=== PATIENT | female | born 1935 | race Caucasian/White ===

== ENCOUNTER 2020-11-25 14:05 | Emergency (ER) | payer MEDICARE, BC ==
--- NOTE | 2020-11-25 17:26 | EDM.PDOC ---
ED HPI GENERAL MEDICAL PROBLEM - General Chief Complaint: General Stated Complaint: FATIGUE Time Seen by Provider: 11/25/20 16:45 Source of Information: Reports: Patient, Family History Limitations: Reports: No Limitations - History of Present Illness INITIAL COMMENTS - FREE TEXT/NARRATIVE: 84-year-old female was brought in by her daughter because earlier today she acted confused, fatigued, seemed to have difficulty stringing a few words together and they were concerned she may be having a stroke. She has had some bleeding, I believe vaginal bleeding, and saw her primary provider yesterday and a [employer] consult has been set up. She otherwise feels okay, she has been waiting in the emergency room for a couple of hours due to it being very busy, and she is now back to baseline. She is speaking in full sentences and has no complaints. She has been on the cardiac cath technician and has been stable with sinus rhythm. According to her daughter she is also been having occasional chills over the past several days. Onset: Unknown/Unsure Duration: Other (Symptoms seem to last for several hours but have resolved) Associated Symptoms: Reports: Confusion, Malaise, Weakness. Denies: Cough, Diaphoresis, Fever/Chills, Headaches, Nausea/Vomiting, Shortness of Breath - Related Data Allergies Allergy/AdvReac Type Severity Reaction Status Date / Time ciprofloxacin [From Cipro] Allergy Other Verified 11/25/20 15:42 Sulfa (Sulfonamide Allergy Other Verified 11/25/20 15:42 Antibiotics) Home Meds: Home Meds Albuterol [Ventolin HFA] 1 - 2 puff IH Q4H PRN 05/10/19 [History] Ascorbic Acid 500 mg PO DAILY 05/10/19 [History] Aspirin [Ecotrin EC] 325 mg PO DAILY 05/10/19 [History] Cholecalciferol (Vitamin D3) [Vitajoy Daily D] 1,000 unit PO DAILY 05/10/19 [History] Desloratadine 5 mg PO DAILY 05/10/19 [History] Diltiazem [Cardizem] 90 mg PO DAILY 05/10/19 [History] Fluticasone Propionate [Flonase] 2 spray BRIGITTE DAILY 05/10/19 [History] Inositol Niacinate [Inositol Hexanicotinate] 500 gm PO DAILY 05/10/19 [History] Multivitamin [Daily Lisa] 1 each PO DAILY 05/10/19 [History] Omeprazole 20 mg PO DAILY 05/10/19 [History] Oxyquinoline/Emollient Base [[place] Nail Conditioner] 1 applic VAG ASDIRECTED 05/10/19 [History] Pravastatin Sodium 20 mg PO DAILY 05/10/19 [History] Vitamin E 400 unit PO DAILY 05/10/19 [History] lisinopriL [Lisinopril] 20 mg PO BID 05/10/19 [History] PARoxetine [Paxil] 5 mg PO DAILY 05/16/19 [History] Past Medical History HEENT History: Reports: Cataract Cardiovascular History: Reports: CAD, High Cholesterol, Hypertension Respiratory History: Reports: None Gastrointestinal History: Reports: None Genitourinary History: Reports: None 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 Musculoskeletal History: Reports: None Neurological History: Reports: None Psychiatric History: Reports: None Endocrine/Metabolic History: Reports: None Hematologic History: Reports: Anemia Immunologic History: Reports: None Oncologic (Cancer) History: Reports: None Dermatologic History: Reports: None - Infectious Disease History Infectious Disease History: Reports: Chicken Pox, Measles, Mumps - Past Surgical History HEENT Surgical History: Reports: Cataract Surgery Cardiovascular Surgical History: Reports: Coronary Artery Stent Musculoskeletal Surgical History: Reports: None Social & Family History - Tobacco Use Tobacco Use Status *Q: Never Tobacco User ED ROS GENERAL - Review of Systems Review Of Systems: See Below Constitutional: Reports: Chills, Malaise. Denies: Fever, Decreased Appetite (Claims a good appetite) HEENT: Denies: Vision Change Respiratory: Denies: Shortness of Breath, Cough Cardiovascular: Reports: Lightheadedness. Denies: Chest Pain, Palpitations Endocrine: Reports: Fatigue GI/Abdominal: Reports: No Symptoms : Reports: Other (Has been experiencing some vaginal bleeding, [employer] consult has been set up) Neurological: Reports: Confusion, Dizziness, Trouble Speaking (Earlier she was having difficulty speaking clearly), Weakness Psychiatric: Reports: No Symptoms ED EXAM, GENERAL - Physical Exam Exam: See Below Exam Limited By: No Limitations General Appearance: Alert, No Apparent Distress Eye Exam: Bilateral Eye: Normal Inspection Head: Atraumatic Neck: Non-Tender Respiratory/Chest: Lungs Clear Cardiovascular: Regular Rate, Rhythm. No: Extra Beats GI/Abdominal: Soft, Non-Tender Extremities: Normal Inspection. No: Pedal Edema Neurological: Alert, Oriented, No Motor/Sensory Deficits, Other (Able to stand without assistance, Romberg is negative, no pronator drift) Psychiatric: Normal Affect, Normal Mood Skin Exam: Warm, Dry Course - Vital Signs Last Recorded V/S: Last Vital Signs Temp 98.4 F 11/25/20 15:39 Pulse 80 11/25/20 15:39 Resp 18 11/25/20 15:39 BP 119/61 11/25/20 15:39 Pulse Ox 92 L 11/25/20 15:39 - Orders/Labs/Meds Orders: Active Orders 24 hr Category Date Time Status CULTURE URINE [RM] Stat Lab 11/25/20 17:47 Received Labs: Laboratory Tests 11/25/20 11/25/20 11/25/20 Range/Units 17:10 17:10 17:18 WBC 5.4 (4.5-11.0) K/uL RBC 5.03 (3.30-5.50) M/uL Hgb 15.2 H (12.0-15.0) g/dL Hct 44.9 (36.0-48.0) % MCV 89 (80-98) fL MCH 30 (27-31) pg MCHC 34 (32-36) % Plt Count 125 L (150-400) K/uL Neut % (Auto) 86.2 H (36-66) % Lymph % (Auto) 7.9 L (24-44) % Atkinson % (Auto) 5.7 (2-6) % Eos % (Auto) 0.0 L (2-4) % Baso % (Auto) 0.2 (0-1) % Sodium 139 L (140-148) mmol/L Potassium 3.9 (3.6-5.2) mmol/L Chloride 103 (100-108) mmol/L Carbon Dioxide 27 (21-32) mmol/L Anion Gap 12.9 (5.0-14.0) mmol/L BUN 20 H (7-18) mg/dL Creatinine 1.0 (0.6-1.0) mg/dL Est Cr Clr Drug Dosing 34.30 mL/min Estimated GFR (MDRD) 53 L (>60) Glucose 102 (74-106) mg/dL Calcium 8.6 (8.5-10.1) mg/dL Total Bilirubin 0.5 (0.2-1.0) mg/dL AST 45 H (15-37) U/L ALT 27 (12-78) U/L Alkaline Phosphatase 80 (46-116) U/L Total Protein 6.3 L (6.4-8.2) g/dL Albumin 2.7 L (3.4-5.0) g/dL Globulin 3.6 H (2.3-3.5) g/dL Albumin/Globulin Ratio 0.8 L (1.2-2.2) Urine Color Yellow (YELLOW) Urine Appearance Turbid A (CLEAR) Urine pH 5.5 (5.0-8.0) Ur Specific Hulbert >= 1.030 (1.008-1.030) Urine Protein 30 H (NEGATIVE) mg/dL Urine Glucose (UA) Negative (NEGATIVE) mg/dL Urine Ketones Negative (NEGATIVE) mg/dL Urine Occult Blood Moderate H (NEGATIVE) Urine Nitrite Negative (NEGATIVE) Urine Bilirubin Negative (NEGATIVE) Urine Urobilinogen 1.0 (0.2-1.0) EU/dL Ur Leukocyte Esterase Moderate H (NEGATIVE) Urine RBC 0-5 (0-5) Urine WBC Semi-packed H (0-5) Ur Epithelial Cells Few Amorphous Sediment Not seen Urine Bacteria Moderate Urine Mucus Few - Re-Assessments/Exams Free Text/Narrative Re-Assessment/Exam: 11/25/20 17:26 CBC, CMP and UA were obtained 11/25/20 17:51 Labs were generally reassuring however she has significant bacteriuria and WBCs in her urine. A culture was initiated, and because of the occasional chills I am assuming this is symptomatic so she will be covered with Macrobid twice daily for 5 days. She can return anytime if worsening or concerns. Departure - Departure Time of Disposition: 18:02 Disposition: Home, Self-Care 01 Clinical Impression: Weakness UTI (urinary tract infection) Qualifiers: Urinary tract infection type: acute cystitis Hematuria presence: without hematuria Qualified Code(s): N30.00 - Acute cystitis without hematuria - Discharge Information Instructions: Urinary Tract Infection, Adult, [id number] Referrals: Mitesh Ramsey MD [Primary Care Provider] - Forms: ED Department Discharge Care Plan Goals: Continue any current medications and take antibiotic twice daily as prescribed. Return anytime if worsening such as persistent fevers, significant weakness or nausea or vomiting. We should be in touch with you with culture results in the next few days if any change in treatment is needed Sepsis Event Note (ED) - Evaluation Sepsis Screening Result: No Definite Risk - Focused Exam Vital Signs: Vital Signs Temp Pulse Resp BP Pulse Ox 11/25/20 15:39 98.4 F 80 18 119/61 92 L - My Orders Last 24 Hours: My Active Orders 11/25/20 17:47 CULTURE URINE [RM] Stat - Assessment/Plan Last 24 Hours: My Active Orders 11/25/20 17:47 CULTURE URINE [RM] Stat
== END 2020-11-25 18:09 | disposition home or self-care (01) ==
LOC: JP.ED 14:05
DX: N30.00 Acute cystitis without hematuria (principal); I25.10 Atherosclerotic heart disease of native coronary artery without angina pectoris; E78.00 Pure hypercholesterolemia, unspecified; I10 Essential (primary) hypertension; Z79.82 Long term (current) use of aspirin; Z79.899 Other long term (current) drug therapy; Z88.2 Allergy status to sulfonamides; Z88.1 Allergy status to other antibiotic agents
CPT/HCPCS: 36415; 80053; 81001; 85025; 87086; 87088; 87186; 99284